=== PATIENT | female | born 1945 | race Caucasian/White ===

== ENCOUNTER 2017-08-17 16:20 | Inpatient (IN) | payer BC ==
[~2017-08-17] VITALS: Ht 157.5 cm; Wt 41.9 kg
[2017-08-17] MEDS ORDERED: SODIUM CHLORIDE 0.9% 1,000 ML IV ONE (16:37)
[2017-08-17] MEDS ORDERED: ASA/1TAB PO (16:40)
[2017-08-17] MEDS ORDERED: RANI75TA12 PO (16:40)
[2017-08-17] MEDS ORDERED: AMOX1TAB64 PO (16:42)
[2017-08-17] MEDS ORDERED: ONDA4TAB10 PO (16:42)
[2017-08-17 16:54] LABS: BASOPHILS # (AUTO) 0.03 x10^3/uL (0-0.1); BASOPHILS % (AUTO) 0 % (0-1); EOSINOPHILS # (AUTO) 0.02 x10^3/uL (0-0.4); EOSINOPHILS % (AUTO) 0 % (1-7); LYMPHOCYTES % (AUTO) 12 % (22-44); MD NO; MEAN CORPUSCULAR HEMOGLOBIN 29.6 pg (27.0-34.8); MEAN CORPUSCULAR HGB CONC 32.9 g/dL (32.4-35.8); MEAN PLATELET VOLUME 9.5 fL (7.4-10.4); MONOCYTES % (AUTO) 4 % (2-9); NEUTROPHILS # (AUTO) 13.35 x10^3/uL (1.8-6.8); NEUTROPHILS % (AUTO) 83 % (42-75); PLATELET COUNT 302 x10^3/uL (130-400); RED CELL DISTRIBUTION WIDTH 16.3 % (9.6-15.2)
[2017-08-17] MEDS ORDERED: SODIUM CHLORIDE FLUSH 10ML SYR IVF ONE (17:00)
[2017-08-17 17:02] LABS: INTERNATIONAL NORMALIZED RATIO 1.26 (0.93-1.1)
[2017-08-17 17:03] LABS: ALANINE AMINOTRANSFERASE 46 U/L (12-78); ALBUMIN 2.6 g/dL (3.4-5.0); CHLORIDE 97 mmol/L (98-107)
[2017-08-17 17:05] LABS: ALKALINE PHOSPHATASE 159 U/L (45-117); BILIRUBIN,TOTAL 0.6 mg/dL (0.2-1.0); TOTAL PROTEIN 6.8 g/dL (6.4-8.2)
[2017-08-17 17:17] LABS: ANION GAP 9 mmol/L (5-15); CREATININE 0.92 mg/dL (0.55-1.02)
[2017-08-17] MEDS ORDERED: FUROSEMIDE 20 MG/2 ML ONE (17:58)
[2017-08-17] MEDS ORDERED: SODIUM CHLORIDE 0.9% 1,000ML IVBOLUS ONE ×2 (18:00→19:00)
[2017-08-17] MEDS ORDERED: FUROSEMIDE 20 MG/2 ML IV ONE (18:00)
[2017-08-17] MEDS ORDERED: FENTANYL PF 100 MCG/2ML ONE (19:21)
[2017-08-17] MEDS ORDERED: FENTANYL PF 100 MCG/2ML IV ONE (19:30)
[2017-08-17 19:35] LABS: CULTURE INDICATED? YES; MICROSCOPIC INDICATED
[2017-08-17] MEDS ORDERED: CEFTRIAXONE PMX 1GM/50ML 50 ML IV ONE (20:00)
[2017-08-17] MEDS ORDERED: CEFTRIAXONE PMX 1GM/50ML 50 ML ONE (20:06)
[2017-08-17] MEDS ORDERED: CEFTRIAXONE PMX 1GM/50ML 50 ML IV SCH (20:30)
[2017-08-17] MEDS ORDERED: BISACODYL 10 MG SUPP PR PRN (21:00)
[2017-08-17] MEDS ORDERED: ONDANSETRON 2MG/ML, 2ML IVPush PRN (21:00)
[2017-08-17] MEDS ORDERED: PAMIDRONATE 3 MG/ML, 10ML IV ONE (21:00)
[2017-08-17] MEDS ORDERED: NS + 20MEQ KCL 1,000 ML IV SCH (21:16)
[2017-08-17] MEDS ORDERED: PAMIDRONATE 90 MG in SODIUM CHLORIDE 0.9% 500 ML IV ONE (21:30)
[2017-08-17] MEDS: FAMOTIDINE 20 MG/2 ML IVPush SCH (21:33)
[2017-08-17] MEDS: HEPARIN 5,000 UNITS/ML, 1ML SQ SCH (21:33)
[2017-08-17] MEDS: NICOTINE 21 MG/24 HR PATCH.TD24 TD SCH (21:33)
[2017-08-17] MEDS: morphine SULFATE 10 MG/ML, 1ML IVPush PRN (21:33)
[2017-08-17] MEDS: CEFTRIAXONE 1,000 MG in SODIUM CHLORIDE 0.9% 50 ML IV SCH (23:03)
[2017-08-18 04:06] VITALS: BP 153/84
[2017-08-18] MEDS: HEPARIN 5,000 UNITS/ML, 1ML SQ SCH ×3 (04:24→20:47)
[2017-08-18 04:28] LABS: MEAN CORPUSCULAR HEMOGLOBIN 29.3 pg (27.0-34.8); MEAN CORPUSCULAR HGB CONC 32.7 g/dL (32.4-35.8); MEAN CORPUSCULAR VOLUME 89.5 fL (80-100); MEAN PLATELET VOLUME 9.4 fL (7.4-10.4); PLATELET COUNT 262 x10^3/uL (130-400); RED BLOOD COUNT 5.36 x10^6/uL (3.82-5.3); RED CELL DISTRIBUTION WIDTH 16.2 % (9.6-15.2)
[2017-08-18 04:49] LABS: ALBUMIN 2.4 g/dL (3.4-5.0); ANION GAP 6 mmol/L (5-15); CHLORIDE 105 mmol/L (98-107); CREATININE 0.69 mg/dL (0.55-1.02)
[2017-08-18 04:51] LABS: ALANINE AMINOTRANSFERASE 38 U/L (12-78); ALKALINE PHOSPHATASE 150 U/L (45-117); BILIRUBIN,TOTAL 0.5 mg/dL (0.2-1.0); TOTAL PROTEIN 6.6 g/dL (6.4-8.2)
[2017-08-18 05:01] LABS: CALCIUM 15.4 mg/dL (8.5-10.1)
[2017-08-18 05:04] LABS: BASOPHILS # (AUTO) 0.02 x10^3/uL (0-0.1); BASOPHILS % (AUTO) 0 % (0-1); EOSINOPHILS # (AUTO) 0.03 x10^3/uL (0-0.4); EOSINOPHILS % (AUTO) 0 % (1-7); LYMPHOCYTES # (AUTO) 1.59 x10^3/uL (1-3.4); LYMPHOCYTES % (AUTO) 10 % (22-44); MD SCAN; MONOCYTES # (AUTO) 0.24 x10^3/uL (0.2-0.8); MONOCYTES % (AUTO) 2 % (2-9); NEUTROPHILS # (AUTO) 13.91 x10^3/uL (1.8-6.8); NEUTROPHILS % (AUTO) 88 % (42-75)
[2017-08-18] MEDS: FAMOTIDINE 20 MG/2 ML IVPush SCH ×2 (07:47→20:47)
[2017-08-18] MEDS: morphine SULFATE 10 MG/ML, 1ML IVPush PRN (07:47)
[2017-08-18] MEDS ORDERED: SODIUM CHLORIDE 0.9% 1,000 ML IV SCH (08:30)
[2017-08-18] MEDS: SODIUM CHLORIDE 0.9% 1,000 ML IV SCH ×2 (14:44→18:55)
[2017-08-18] MEDS: NICOTINE 21 MG/24 HR PATCH.TD24 TD SCH (20:49)
[2017-08-18] MEDS: CEFTRIAXONE 1,000 MG in SODIUM CHLORIDE 0.9% 50 ML IV SCH (20:51)
[2017-08-19] MEDS: SODIUM CHLORIDE 0.9% 1,000 ML IV SCH (03:46)
[2017-08-19 04:00] VITALS: BP 146/45
[2017-08-19 04:33] LABS: BASOPHILS # (AUTO) 0.01 x10^3/uL (0-0.1); BASOPHILS % (AUTO) 0 % (0-1); EOSINOPHILS # (AUTO) 0.01 x10^3/uL (0-0.4); EOSINOPHILS % (AUTO) 0 % (1-7); LYMPHOCYTES # (AUTO) 1.16 x10^3/uL (1-3.4); LYMPHOCYTES % (AUTO) 9 % (22-44); MD NO; MEAN CORPUSCULAR HEMOGLOBIN 28.9 pg (27.0-34.8); MEAN CORPUSCULAR HGB CONC 32.3 g/dL (32.4-35.8); MEAN CORPUSCULAR VOLUME 89.3 fL (80-100); MEAN PLATELET VOLUME 8.7 fL (7.4-10.4); MONOCYTES # (AUTO) 0.68 x10^3/uL (0.2-0.8); MONOCYTES % (AUTO) 5 % (2-9); NEUTROPHILS % (AUTO) 86 % (42-75); PLATELET COUNT 254 x10^3/uL (130-400); RED BLOOD COUNT 3.69 x10^6/uL (3.82-5.3); RED CELL DISTRIBUTION WIDTH 16.2 % (9.6-15.2)
[2017-08-19 04:46] LABS: ALBUMIN 1.7 g/dL (3.4-5.0); ANION GAP 5 mmol/L (5-15); CALCIUM 11.4 mg/dL (8.5-10.1); CHLORIDE 118 mmol/L (98-107)
[2017-08-19 04:50] LABS: ALANINE AMINOTRANSFERASE 23 U/L (12-78); ALKALINE PHOSPHATASE 99 U/L (45-117); BILIRUBIN,TOTAL 0.3 mg/dL (0.2-1.0); CREATININE 0.36 mg/dL (0.55-1.02); TOTAL PROTEIN 4.6 g/dL (6.4-8.2)
[2017-08-19] MEDS: HEPARIN 5,000 UNITS/ML, 1ML SQ SCH (06:18)
[2017-08-19] MEDS ORDERED: POTASSIUM CHLORIDE 40 MEQ in SODIUM CHLORIDE 0.9% 500 ML IV ONE (07:00)
[2017-08-19] MEDS ORDERED: MAGNESIUM SULFATE 4 GM in SODIUM CHLORIDE 0.9% 100 ML IV ONE (07:00)
[2017-08-19] MEDS ORDERED: POTASSIUM PHOSPHATE 44 MEQ in SODIUM CHLORIDE 0.9% 500 ML IV ONE (07:00)
[2017-08-19] MEDS: FAMOTIDINE 20 MG/2 ML IVPush SCH ×2 (09:29→21:29)
[2017-08-19] MEDS ORDERED: POTASSIUM CHLORIDE 10% 40 MEQ/30 ML UDC ONE (11:13)
[2017-08-19] MEDS ORDERED: POTASSIUM CHLORIDE 10% 40 MEQ/30 ML UDC PO ONE (11:30)
[2017-08-19 13:42] LABS: CALCIUM 11.6 mg/dL (8.5-10.1); CHLORIDE 117 mmol/L (98-107)
[2017-08-19 13:43] LABS: CREATININE 0.44 mg/dL (0.55-1.02)
[2017-08-19 13:57] LABS: ANION GAP 3 mmol/L (5-15)
[2017-08-19 14:47] VITALS: BP 145/74
[2017-08-19] MEDS ORDERED: MORPHINE SULFATE 4 MG/ML, 1ML IVPush PRN (19:00)
[2017-08-19] MEDS ORDERED: POTASSIUM CHLORIDE 20 MEQ PACKET PO ONE (19:00)
[2017-08-19 20:49] VITALS: BP 135/69
[2017-08-19] MEDS: NICOTINE 21 MG/24 HR PATCH.TD24 TD SCH (21:29)
[2017-08-20 01:41] VITALS: BP 153/76
[2017-08-20] MEDS ORDERED: POTASSIUM CHLORIDE 20 MEQ PACKET PO ONE (06:00)
[2017-08-20] MEDS: FAMOTIDINE 20 MG/2 ML IVPush SCH (08:03)
[2017-08-20 09:30] VITALS: BP 137/81
[2017-08-20] MEDS ORDERED: HYDROcodone/APAP 7.5-325MG/15ML UDC PO PRN (09:30)
[2017-08-20 13:08] VITALS: BP 149/87
== END 2017-08-20 17:38 | disposition hospice, home (50) | DRG 299 ==
LOC: ED 18:27 → EDIP 20:33 → CCU 21:14 → 3NW 08-19 14:43
PROVIDERS: ADMIT Internal Medicine; ATTEND Internal Medicine
PROC: 0T9B70Z Drainage of Bladder with Drainage Device, Via Natural or Artificial Opening (ICD-10-PCS; principal; 2017-08-17)
DX: I70.221 Atherosclerosis of native arteries of extremities with rest pain, right leg (principal); G93.40 Encephalopathy, unspecified; E43 Unspecified severe protein-calorie malnutrition; R64 Cachexia; D68.9 Coagulation defect, unspecified; Z68.1 Body mass index [BMI] 19.9 or less, adult; E87.2 Acidosis; C34.90 Malignant neoplasm of unspecified part of unspecified bronchus or lung; E83.52 Hypercalcemia; E87.6 Hypokalemia; R22.2 Localized swelling, mass and lump, trunk; K57.90 Diverticulosis of intestine, part unspecified, without perforation or abscess without bleeding; E87.8 Other disorders of electrolyte and fluid balance, not elsewhere classified; E83.39 Other disorders of phosphorus metabolism; E83.42 Hypomagnesemia; E87.5 Hyperkalemia; R62.7 Adult failure to thrive; N30.91 Cystitis, unspecified with hematuria; Z88.2 Allergy status to sulfonamides; Z51.5 Encounter for palliative care; Z66 Do not resuscitate; Z80.1 Family history of malignant neoplasm of trachea, bronchus and lung; Z82.0 Family history of epilepsy and other diseases of the nervous system; E27.9 Disorder of adrenal gland, unspecified; F17.210 Nicotine dependence, cigarettes, uncomplicated
CPT/HCPCS: 36415; 36600; 51702; 84145; 99291; S0028; 70450; 71045; 71250; 74176; 80048; 80053; 81001; 82306; 82607; 82803; 83605; 83735; 83970; 84100; 84443; 85025; 85610; 85730; 86850; 86900; 87040; 87081; 87086; 93005; 93922; 93926; 96361; 96365; 96375; J0696; J1644; J3010; J3475; J3480; J1940; J2270; J2430; J7030; J7040